=== PATIENT | male | born 1940 | race Caucasian/White ===

== ENCOUNTER 2019-05-06 07:17 | Day surgery (SDC) | payer BC, MEDICARE ==
[~2019-05-06 07:17] MED LIST: Lactated Ringers 1,000 ML IV SCH; Sodium Chloride 0.9% 10 ML Syringe FLUSH PRN
[2019-05-06] MEDS ORDERED: Propofol 200 MG/20 ML SDV IV ONE (07:18)
[2019-05-06] MEDS ORDERED: fentaNYL 100 MCG/2 ML SDV IV ONE (07:18)
[2019-05-06] MEDS ORDERED: Ketorolac 30 MG/ML SDV IVPUSH ONE (07:18)
[2019-05-06] MEDS ORDERED: ceFAZolin 2 GM in Premix Bag 1 BAG IV ONE (09:00)
[2019-05-06] MEDS ORDERED: Bupivacaine 0.5% 30 ML SDV INJECT ONE (09:50)
[2019-05-06] MEDS ORDERED: Lidocaine 1% with EPINEPHrine 1:100,000 20 ML MDV INJECT ONE (09:55)
[2019-05-06] MEDS ORDERED: Acetaminophen/HYDROcodone 325-5 MG Tab PO PRN (10:19)
--- NOTE | 2019-05-06 10:24 | PCM.OPNOTE ---
- General Post-Op/Procedure Note Date of Surgery/Procedure: 05/06/19 Operative Procedure(s): lih repair with mesh Findings: indirect lih Pre Op Diagnosis: lih without obstruction or gangrene Post-Op Diagnosis: Same Anesthesia Technique: General LMA, Local (8 ml 1 % lido with epi/0.5% buvipicaine) Primary Surgeon: Fabien Noland Anesthesia Provider: Nichol Peralta Pathology: none Complications: None Condition: Good Free Text/Narrative:: see dictation
--- NOTE | 2019-05-06 11:37 | PREOP ---
ADMISSION DATE: 05/06/2019 CHIEF COMPLAINT: Left inguinal hernia. HISTORY OF PRESENT ILLNESS: This is a patient who is referred with a reducible left inguinal hernia. Has no marked pain. No issues with difficulty with urination or chronic cough. Did have some constipation, which was very responsive to MiraLax. PAST MEDICAL HISTORY: Significant for glaucoma, hypertension. PAST SURGICAL HISTORY: Significant for eye surgery, he has a prosthetic right eye, and he has a tube shunt in the left eye done at the [facility]. MEDICATIONS: Currently include, 1. MiraLax 3 tablespoons by day as needed. 2. Pred Forte ophthalmic solution to the left eye 2 times a day. 3. Timoptic 0.5 one drop to the left eye 2 times a day. 4. Multivitamin. 5. Lisinopril 20 mg tablet 1/2 tablet one time per day. 6. Zocor 80 mg 1/2 tablet one time per day. ALLERGIES: He reports no known drug allergies. REVIEW OF SYSTEMS: Negative for constitutional, HEENT, respiratory, cardiovascular, gastrointestinal, genitourinary, musculoskeletal, or skin. PHYSICAL EXAMINATION: GENERAL: This is a well-developed, well-nourished white male appearing in no acute distress. VITAL SIGNS: Stable. He is afebrile. HEENT: Grossly within normal limits. LUNGS: Clear to auscultation. HEART: Regular rate and rhythm. ABDOMEN: Soft. He does have a reducible left inguinal hernia. RECTAL: Exam was deferred as it was negative on his March 2008 visit. NEUROLOGIC: He is alert. SKIN: Warm and dry. ASSESSMENT: Left inguinal hernia. PLAN: Repair. Procedure and risks explained to the patient to include bleeding, infection, injury to the spermatic cord, ilioinguinal nerve. The patient expresses understanding and he asked us to proceed. /[id number] /MODL
--- NOTE | 2019-05-06 14:15 | OR ---
DATE OF OPERATION: 05/06/2019 SURGEON: Fabien Noland MD PROCEDURE PERFORMED: Left inguinal hernia repair. PREOPERATIVE DIAGNOSIS: Left inguinal hernia without obstruction or gangrene. POSTOPERATIVE DIAGNOSIS: Left inguinal hernia without obstruction or gangrene. INDICATIONS FOR PROCEDURE: This is a 78-year-old man referred with a left inguinal hernia. He had no obstructive symptoms, but was offered and accepted repair. INTRAOPERATIVE FINDINGS: As follows: The patient had an indirect hernia. This is apparent with a flatus sick Phasix plug and patch, size large. Reference number [id number], lot number [id number], expiration date 05/04/2020, and a total of approximately 7.5 to 8 mL of 1% lidocaine with epinephrine and 0.5% bupivacaine was used. DESCRIPTION OF OPERATION: After an excellent LMA anesthetic was administered, the patient was prepped and draped in the usual sterile manner. An area over the planned incision site which was aligned that intercepted the ilioinguinal ligament approximately care home between the anterior-superior iliac spine and the symphysis pubis was then infiltrated with local. A skin wheal was also raised 1 cm medial to the anterior-superior iliac spine and a deep injection of 3 mL of our local mixture was used to get the ilioinguinal and general femoral nerves. The incision was then made. Subcu fat was divided using electrocautery. Superficial inferior epigastric vessels were clamped, divided, and tied with 2-0 Vicryl ties. Aponeurosis of the external oblique was exposed, more local was injected underneath the aponeurosis. A jasmina was made in the aponeurosis and carried out through the external ring. The cord was then mobilized and controlled with a 1-inch [place] drain. The ilioinguinal nerve was identified and kept out of the operative field. The cord was then skeletonized and a large hernia sac was dissected free from the surrounding structures as well as a cord lipoma. The cord lipoma was reduced. The hernia sac was opened, twisted on itself, and then ligated with an 0 Ethibond and then transected and then the stump returned to normal anatomic position. A large Phasix patch was then inserted into the internal ring and tacked into position in 4 points using 0 Vicryl. 0 Vicryl was then used to tack the Phasix to the inferior edge of the inguinal ligament. A vertical keyhole was carried out and the spermatic cord was encompassed in the mistry. The keyhole defect was then closed with more Vicryl. Optifast was then used to tack the mesh to the floor of the inguinal canal. The area was irrigated. The aponeurosis was closed with a running 3-0 Vicryl with care being taken not to injure the ilioinguinal nerve. The fat was approximated with a running 3-0 Vicryl and the skin was closed with a running 3- 0 Vicryl as well. The patient was taken to recovery room in good condition having tolerated the procedure well. /[id number] /MODL
== END 2019-05-06 12:35 | disposition home or self-care (01) ==
LOC: FB.SDS 07:17
PROVIDERS: ATTEND Surgery
DX: K40.90 Unilateral inguinal hernia, without obstruction or gangrene, not specified as recurrent (principal); I10 Essential (primary) hypertension; Z79.899 Other long term (current) drug therapy
CPT/HCPCS: 00813; 49505; 94150; A9270; C1781; J0690; J1885; J2704; J3010; J3490; J7120